=== PATIENT | female | born 1965 | race Asian ===

== ENCOUNTER 2017-05-05 11:36 | Outpatient (CLI) | payer OTHER ==
--- NOTE | 2017-05-08 18:00 | Mammography Report ---
DIGITAL SCREENING MAMMOGRAM: 05/05/2017 CLINICAL INDICATION: A 51-year-old for screening. COMPARISON: 02/2016, 04/2012, 02/2009, 01/2009 TECHNIQUE: Routine CC and MLO projections were obtained of the breasts. FINDINGS: Scattered fibroglandular tissue is present within the breasts. There are no dominant darius s, suspicious microcalcifications, or secondary signs of malignancy. In comparison to the previous st udies, there are no significant changes. ASSESSMENT: NO MAMMOGRAPHIC EVIDENCE OF MALIGNANCY. NO SIGNIFICANT INTERVAL CHANGES. RECOMMENDATION: Screening mammography is recommended annually. BIRADS category 1 - negative. STANDARD QUALIFYING STATEMENTS 1. This examination was reviewed with the aid of Computed-Aided Detection (CAD). 2. A negative or benign imaging report should not delay biopsy if clinically suspicious findings are present. Consider surgical consultation if warranted. More than 5% of cancers are not identified by i maging. 3. Dense breasts may obscure an underlying neoplasm. 16:9:18 JOB #: [id number] EXT JOB #:[id number]
== END 2017-05-05 11:37 | disposition home or self-care (01) ==
LOC: DI.N 11:36
PROVIDERS: ATTEND Family Medicine
DX: Z12.31 Encounter for screening mammogram for malignant neoplasm of breast (principal)
CPT/HCPCS: 77067

== ENCOUNTER 2018-11-21 14:58 | Outpatient (CLI) | payer OTHER ==
[2018-11-21 15:18] LABS: BASOPHILS # (AUTO) 0.1 10^3/uL (0.0-0.1); BASOPHILS % (AUTO) 0.7 %; EOSINOPHILS # (AUTO) 0.2 10^3/uL (0.0-0.7); EOSINOPHILS % (AUTO) 2.9 %; HGB - HEMOGLOBIN 15.7 g/dL (12.0-16.0); LYMPHOCYTES # (AUTO) 2.4 10^3/uL (1.5-3.5); MEAN CORPUSCULAR VOLUME 88.4 fL (81.0-99.0); MEAN PLATELET VOLUME 7.8 fL (7.9-10.8); MONOCYTES # (AUTO) 0.5 10^3/uL (0.0-1.0); MONOCYTES % (AUTO) 7.1 %; NEUTROPHILS # (AUTO) 4.3 10^3/uL (1.5-6.6); NEUTROPHILS % (AUTO) 57.3 %; PLT - PLATELET COUNT 225 10^3/uL (130-450); RED BLOOD COUNT 5.24 10^6/uL (4.20-5.40); RED CELL DISTRIBUTION WIDTH 13.4 % (12.0-15.0); WHITE BLOOD COUNT 7.6 x10^3/uL (4.8-10.8)
[2018-11-21] MEDS ORDERED: IOVERSOL 320 50 ML VIAL ONE (15:28)
[2018-11-21] MEDS ORDERED: IOVERSOL 320 100 ML VIAL IVP ONE ×2 (15:28→17:31)
[2018-11-21 15:31] LABS: ALBUMIN 4.3 g/dL (3.2-5.5); ALBUMIN/GLOBULIN RATIO 1.2 (1.0-2.2); BILIRUBIN,TOTAL 0.5 mg/dL (0.2-1.0); CALCIUM 9.8 mg/dL (8.5-10.3); CREATININE 0.6 mg/dL (0.4-1.0)
[2018-11-21 16:21] LABS: CA 125 7.1 U/mL (0.0-35.0)
[2018-11-21] MEDS ORDERED: IOVERSOL 320 50 ML VIAL PO ONE (17:29)
--- NOTE | 2018-11-21 18:20 | CT Report ---
Reason: PELVIC PAIN,ABDOMINAL PAIN Procedure Date: 11/21/2018 Accession Number: [id number] / [id number] Procedure: CT - Abdomen/Pelvis W/ CPT Code: FULL RESULT: EXAM: CT ABDOMEN AND PELVIS EXAM DATE: 11/21/2018 05:05 PM. CLINICAL HISTORY: PELVIC PAIN, ABDOMINAL PAIN. COMPARISONS: None. TECHNIQUE: Routine helical CT imaging was performed through the abdomen and pelvis. IV contrast: 50 ML OPTIRAY 320. Enteric contrast: Positive. Reconstructions: Coronal and sagittal. In accordance with CT protocol optimization, one or more of the following dose reduction techniques were utilized for this exam: automated exposure control, adjustment of mA and/or KV based on patient size, or use of iterative reconstructive technique. FINDINGS: Lung Bases: Unremarkable. Liver: There is mild hepatic steatosis. No focal hepatic lesions are seen. Gallbladder/Bile Ducts: Unremarkable. Spleen: Normal. Pancreas: Normal. Adrenal Glands: Normal. Kidneys: Normal. No masses or hydronephrosis. Peritoneal Cavity/Bowel: Normal. No free fluid, free air or adenopathy. No masses or acute inflammatory process. The appendix is well visualized and normal. Pelvic Organs: Normal. The bladder and visualized pelvic organs are within normal limits. Vasculature: No aneurysms or other significant abnormality. Bones: There is grade 1 anterolisthesis of L5 on S1. Other: None. IMPRESSION: 1. Negative abdomen and pelvis CT. No acute solid or hollow viscus organ abnormalities to account for the patient's presentation. 2. There is mild hepatic steatosis. 3. There is grade 1 anterolisthesis of L5 on S1. [facility] The call report notification system was initiated by Dr. Dario Mccord at 06:18 PM hrs on 11/21/2018.
== END 2018-11-21 14:59 | disposition home or self-care (01) ==
LOC: DI 14:58
PROVIDERS: ATTEND Family Medicine
DX: R10.2 Pelvic and perineal pain (principal); R10.9 Unspecified abdominal pain; K76.0 Fatty (change of) liver, not elsewhere classified; I10 Essential (primary) hypertension; F32.9 Major depressive disorder, single episode, unspecified
CPT/HCPCS: 36415; 74177; 80053; 84443; 85025; 86304; Q9967

== ENCOUNTER 2018-11-22 08:00 | Outpatient (CLI) | payer OTHER ==
[2018-11-22 16:40] LABS: CHOLESTEROL 215 mg/dL; VLDL CHOLESTEROL 67 mg/dL
[2018-11-22 17:12] LABS: CHOL/HDL RATIO 4.2 (<4.4); HDL CHOLESTEROL 51 mg/dL; LDL CHOLESTEROL,CALCULATED 97 mg/dL; LDL/HDL RATIO 1.9 (<4.4)
== END 2018-11-22 23:59 | disposition home or self-care (01) ==
LOC: LAB.WCP 08:00
PROVIDERS: ATTEND Family Medicine
DX: E78.5 Hyperlipidemia, unspecified (principal)
CPT/HCPCS: 36415; 80061; 83721

== ENCOUNTER 2019-01-14 10:48 | Outpatient (CLI) | payer OTHER ==
[2019-01-15 13:47] LABS: HEPATITIS B SURFACE ANTIGEN NON-REACTIVE (NON-REACTIVE)
== END 2019-01-14 10:49 | disposition home or self-care (01) ==
LOC: LAB.WCP 10:48
PROVIDERS: ATTEND Family Medicine
DX: Z13.89 Encounter for screening for other disorder (principal)
CPT/HCPCS: 36415; 86317; 86704; 87340

== ENCOUNTER 2019-01-29 08:00 | Outpatient (CLI) | payer OTHER ==
[2019-01-29 12:41] LABS: ALBUMIN 4.2 g/dL (3.2-5.5); ALBUMIN/GLOBULIN RATIO 1.2 (1.0-2.2); ALKALINE PHOSPHATASE 52 IU/L (42-121); ALT ALANINE AMINOTRANSFERASE 38 IU/L (10-60); AST ASPARTATE AMINOTRANSFERASE 34 IU/L (10-42); BILIRUBIN,TOTAL 0.8 mg/dL (0.2-1.0); BUN - BLOOD UREA NITROGEN 14 mg/dL (6-20); CALCIUM 9.2 mg/dL (8.5-10.3); CARBON DIOXIDE - CO2 24 mmol/L (21-32); CHLORIDE 102 mmol/L (101-111); CHOL/HDL RATIO 3.4 (<4.4); CHOLESTEROL 183 mg/dL; CREATININE 0.6 mg/dL (0.4-1.0); GFR - MDRD 105 (>89); GLUCOSE 191 mg/dL (70-100); HDL CHOLESTEROL 54 mg/dL; LDL CHOLESTEROL,CALCULATED 108 mg/dL; SODIUM 137 mmol/L (135-145); TOTAL PROTEIN 7.7 g/dL (6.7-8.2); VLDL CHOLESTEROL 21 mg/dL
== END 2019-01-29 23:59 ==
LOC: LAB.WCP 08:00
PROVIDERS: ATTEND Family Medicine
DX: E78.5 Hyperlipidemia, unspecified (principal)
CPT/HCPCS: 36415; 80053; 80061; 83721

== ENCOUNTER 2019-01-31 07:05 | Outpatient (CLI) | payer OTHER ==
--- NOTE | 2019-01-31 16:08 | MRI Report ---
Reason: OSTEITIS PUBIS Procedure Date: 01/31/2019 Accession Number: [id number] / [id number] Procedure: MRI - Pelvis W/O CPT Code: FULL RESULT: EXAM: MRI PELVIS WITHOUT CONTRAST EXAM DATE: 01/31/2019 07:45 AM. CLINICAL HISTORY: Left groin pain for months. Osteitis pubis. COMPARISON: ABDOMEN/PELVIS W/ 11/21/2018 5:05 PM. TECHNIQUE: Multiplanar, multisequence T1-weighted and fluid-sensitive sequences of the pelvis without contrast. Other: None. FINDINGS: Symphysis pubis: Parasymphyseal bone marrow edema at the medial aspects of the left and right pubic bones, left more than right. Edema within the pubic symphyseal fibrocartilage. Janay-pubic symphyseal soft tissue edema. There is superior and posterior herniation of the pubic symphyseal fibrocartilage. No definite bone erosion. Lower Lumbar Spine: Degenerative disk changes at L5-S1. Sacroiliac Joints: No effusion or sacroiliitis. Right Hip: No acetabular retroversion. Femoral head-neck offset is within normal limits. No effusion. Left Hip: No acetabular retroversion. Femoral head-neck offset is within normal limits. No effusion. Musculature: There is a partial microtear at the lateral aspect of the left rectus abdominis-adductor longus aponeurosis (coronal image 8 of series 401, axial oblique image 16 of series 701, and sagittal images 18 through 20 of series 501). There is also a small partial microtear at the lateral aspect of the right rectus abdominis-adductor longus aponeurosis (sagittal image 29 of series 501, coronal image 7 of series 401, and axial oblique image 16 of series 701). Pelvic Cavity: The visualized bowel, bladder, and reproductive organs are unremarkable. No lymphadenopathy. No free fluid in the pelvis. Other: The visualized sciatic nerves are unremarkable. No bursitis. The subcutaneous tissues are unremarkable. IMPRESSION: 1. Osteitis pubis. 2. Partial microtears at the lateral aspects of the left and right rectus abdominis-adductor longus aponeuroses. 3. Degenerative disk changes at L5-S1. [facility] MUSCULOSKELETAL RADIOLOGY SECTION
== END 2019-01-31 07:06 | disposition home or self-care (01) ==
LOC: DI 07:05
PROVIDERS: ATTEND Physical Medicine & Rehabilitation
DX: M86.9 Osteomyelitis, unspecified (principal); S39.011A Strain of muscle, fascia and tendon of abdomen, initial encounter; M51.37 Other intervertebral disc degeneration, lumbosacral region
CPT/HCPCS: 72195

== ENCOUNTER 2020-09-01 08:00 | Outpatient (CLI) | payer OTHER | END 2020-09-01 08:01 | disposition home or self-care (01) | LOC: COV 08:00 | PROVIDERS: ATTEND Family Medicine | DX: Z20.828 Contact with and (suspected) exposure to other viral communicable diseases (principal) ==

== ENCOUNTER 2023-05-22 08:00 | Outpatient (CLI) | payer OTHER | END 2023-05-22 08:15 | disposition home or self-care (01) | LOC: LAB.N 08:00 | PROVIDERS: ATTEND Nurse Practitioner | DX: N75.1 Abscess of Bartholin's gland (principal) | CPT/HCPCS: 87070; 87077 ==